=== PATIENT | male | born 1960 | race Caucasian/White ===

== ENCOUNTER 2016-11-05 19:03 | Emergency (ER) | payer MEDICAID ==
[~2016-11-05] VITALS: Ht 175.3 cm; Wt 108.9 kg
[2016-11-05 19:57] VITALS: BP 151/95
--- NOTE | 2016-11-05 21:45 | NUR ---
PATIENT LEFT WITHOUT BEING SEEN BY DR. VILLASENOR. NO FURTHER CARE PROVIDED FOR PATIENT.
== END 2016-11-05 21:45 | disposition left against medical advice (07) ==
LOC: MED 19:03
DX: M79.604 Pain in right leg (principal); Z53.21 Procedure and treatment not carried out due to patient leaving prior to being seen by health care provider